=== PATIENT | male | born 1995 | race African-American/Black ===

== ENCOUNTER 2021-04-19 09:47 | Day surgery (SDC) | payer OTHER ==
[2021-04-15 16:08] LABS: BASOPHILS % (AUTO) 0.5 % (0-1); EOSINOPHILS # (AUTO) 0.1 X10'3 (0-0.9); EOSINOPHILS % (AUTO) 0.8 % (0-6); LYMPHOCYTES # (AUTO) 1.9 X10'3 (1.1-4.8); LYMPHOCYTES % (AUTO) 24.7 % (21-51); MEAN CORPUSCULAR HEMOGLOBIN 26.6 PG (27.0-31.0); MEAN CORPUSCULAR HGB CONC 33.4 g/dL (33.0-36.5); MEAN CORPUSCULAR VOLUME 79.6 FL (78-98); MEAN PLATELET VOLUME 8.3 FL (7.4-10.4); MONOCYTES # (AUTO) 0.7 X10'3 (0-0.9); MONOCYTES % (AUTO) 8.6 % (2-12); NEUTROPHILS # (AUTO) 5.1 X10'3 (1.8-7.7); NEUTROPHILS % (AUTO) 65.4 % (42-75); PRE OP HEMATOCRIT 44.4 % (42.0-52.0); PRE OP HEMOGLOBIN 14.8 g/dL (14.0-17.9); PRE OP PLATELET COUNT 289 X10'3 (140-440); RED BLOOD COUNT 5.58 X10'6 (4.70-6.10)
[2021-04-15 16:09] LABS: ALBUMIN 4.3 G/DL (3.4-5.0); ALBUMIN/GLOBULIN RATIO 1.2 (1.1-1.5); ALKALINE PHOSPHATASE 87 IU/L (46-116); BLOOD UREA NITROGEN 12 MG/DL (7-18); BUN/CREATININE RATIO 10.4 (5.4-32.0); CALCIUM 9.4 MG/DL (8.5-10.1); CHLORIDE 106 MMOL/L (99-107); CREATININE 1.15 MG/DL (0.60-1.10); PRE OP ALT 41 U/L (30-65); PRE OP ANION GAP 9 (8-16); PRE OP AST 15 U/L (10-37); PRE OP BILIRUB, TOTAL 0.9 MG/DL (0.0-1.0); PRE OP GLUCOSE 80 MG/DL (70-104); PRE OP POTASSIUM 4.5 MMOL/L (3.4-5.1); PRE OP SODIUM 145 MMOL/L (135-145); TOTAL CARBON DIOXIDE 29.9 MMOL/L (24-32); eGFR > 90 ML/MIN
[~2021-04-19] VITALS: Ht 177.8 cm; Wt 129.9 kg
[~2021-04-19 09:47] MED LIST: BUPR200T2 PO; METH20TA PO; ceFAZolin inj. 3,000 MG in normal saline 100ml IV soln 100 ML IV ONE; ceFAZolin/D5W- 1GM premix 50 ML IV ONE; cefazolin/dext.iso 2gm/50ml 50 ML IV ONE; famotidine 20mg tablet PO ONE; ringers solution, lacted 1,000 ML IV SCH
[2021-04-19 10:00] VITALS: BP 133/82
[2021-04-19] MEDS ORDERED: LIDOcaine 1% 30ml preserv. free vial ONE (11:46)
[2021-04-19] MEDS ORDERED: BUPIVAcaine/PF 2.5mg/ml (0.25%) 10ml vial ONE (11:46)
[2021-04-19] MEDS ORDERED: BUPIVAcaine 0.5% inj/PF 30 ML ONE (11:52)
[2021-04-19] MEDS ORDERED: midazolam 1 mg/ML 2ml injection ONE ×2 (11:56→11:57)
[2021-04-19] MEDS ORDERED: fentaNYL/PF 50MCG/1 ML 2ML syringe ONE (11:56)
[2021-04-19] MEDS ORDERED: ketamine 50mg/5ml syringe ONE (11:59)
[2021-04-19] MEDS ORDERED: proCHLORperazine 10 MG/2 ml inj IV PRN (12:00)
[2021-04-19] MEDS ORDERED: morphine 2 MG/ML inj. syringe IV PRN (12:00)
[2021-04-19] MEDS ORDERED: ringers solution, lacted 1,000 ML IV SCH (12:00)
[2021-04-19] MEDS ORDERED: ondansetron/PF 4mg/2ml inj IV PRN (12:00)
[2021-04-19] MEDS ORDERED: morphine 4 MG/ML inj SYRINge IV PRN (12:00)
[2021-04-19] MEDS ORDERED: meperidine/PF 25mg/ml syringe IV PRN ×3 (12:00)
[2021-04-19] MEDS ORDERED: propofol inj 20 ML IV ONE (12:15)
[2021-04-19] MEDS ORDERED: LIDOcaine 1%/PF 5ML 10 MG/ML VIAL ONE (12:15)
[2021-04-19] MEDS ORDERED: bacitracin 15gm ointment TP ONE (12:38)
[2021-04-19 12:39] VITALS: BP 155/94
--- NOTE | 2021-04-19 12:39 | NUR ---
Received from OR via , accompanied by Anesthesiologist DR FINE and report given by Anesthesiolgist. AWAKENS TO VOICE. VITALS STABLE. DRESSING DI. SUSAN PAIN.
[2021-04-19 12:49] VITALS: BP 136/90
[2021-04-19 12:59] VITALS: BP 127/89
[2021-04-19] MEDS ORDERED: HYDROcodone/acetaminophen 5mg/325mg tablet PO PRN (13:00)
[2021-04-19 13:09] VITALS: BP 128/67
--- NOTE | 2021-04-19 13:29 | NUR ---
AWAKE AND ORIENTED. VITALS STABLE. DRESSING DI. SUSAN PAIN. HOME WITH A FRIEND AT THIS TIME.
== END 2021-04-19 13:29 | disposition home or self-care (01) ==
LOC: PAS 09:47
PROVIDERS: ATTEND Surgery
DX: L72.0 Epidermal cyst (principal); G47.33 Obstructive sleep apnea (adult) (pediatric); F17.290 Nicotine dependence, other tobacco product, uncomplicated; F43.10 Post-traumatic stress disorder, unspecified; Z20.822 Contact with and (suspected) exposure to COVID-19; Z79.899 Other long term (current) drug therapy; Z98.890 Other specified postprocedural states; R20.8 Other disturbances of skin sensation
CPT/HCPCS: 11420; 36415; 80053; 82948; 85025; J0690; J2001; J2250; J2704; J3010; J3490; U0003; U0005; Z7506; Z7512; A7000; J7120

== ENCOUNTER 2023-08-26 14:10 | Emergency (ER) | payer OTHER ==
[~2023-08-26] VITALS: Ht 177.8 cm; Wt 146.0 kg
[~2023-08-26 14:10] MED LIST changes: -ceFAZolin inj. 3,000 MG in normal saline 100ml IV soln 100 ML IV ONE; -ceFAZolin/D5W- 1GM premix 50 ML IV ONE; -cefazolin/dext.iso 2gm/50ml 50 ML IV ONE; -famotidine 20mg tablet PO ONE; -ringers solution, lacted 1,000 ML IV SCH
[2023-08-26 14:47] VITALS: TEMP 97
[2023-08-26 15:50] LABS: LIPASE 20 U/L (16-77)
[2023-08-26 15:53] LABS: BASOPHILS # (AUTO) 0.1 X10'3 (0-0.2); BASOPHILS % (AUTO) 0.5 % (0-1); EOSINOPHILS # (AUTO) 0.1 X10'3 (0-0.9); EOSINOPHILS % (AUTO) 1.2 % (0-6); HEMATOCRIT 43.1 % (42.0-52.0); LYMPHOCYTES # (AUTO) 1.6 X10'3 (1.1-4.8); LYMPHOCYTES % (AUTO) 13.9 % (21-51); MEAN CORPUSCULAR HEMOGLOBIN 25.8 PG (27.0-31.0); MEAN CORPUSCULAR HGB CONC 32.6 g/dL (33.0-36.5); MEAN PLATELET VOLUME 8.5 FL (7.4-10.4); MONOCYTES # (AUTO) 1.2 X10'3 (0-0.9); MONOCYTES % (AUTO) 10.4 % (2-12); NEUTROPHILS # (AUTO) 8.7 X10'3 (1.8-7.7); PLATELET COUNT 322 X10'3 (140-440); RED BLOOD COUNT 5.45 X10'6 (4.70-6.10); RED CELL DISTRIBUTION WIDTH 13.7 % (11.5-14.5); WHITE BLOOD COUNT 11.7 X10'3 (4.5-11.0)
[2023-08-26] MEDS: normal saline 1000ml 1,000 ML IV ONE (15:59)
[2023-08-26 16:09] VITALS: BP 176/98; PULSE 83; O2SAT 99
[2023-08-26 16:39] LABS: ALANINE AMINOTRANSFERASE 64 U/L (12-78); ALKALINE PHOSPHATASE 104 IU/L (46-116); ASPARTATE AMINO TRANSFERASE 25 U/L (10-37)
[2023-08-26 16:50] LABS: BILIRUBIN,URINE NEGATIVE (Neg); CLARITY,URINE SLIGHTLY CLOUDY (Clear); COLOR,URINE YELLOW (Yellow); GLUCOSE, URINE NEGATIVE (Neg); KETONES,URINE TRACE mg/dl (Neg); LEUKOCYTE ESTERASE ,URINE NEGATIVE (Neg); NITRITES, URINE NEGATIVE (Neg); OCCULT BLOOD,URINE LARGE (Neg); PH,URINE 5.5 (4.8-8.0); PROTEIN,URINE NEGATIVE (Neg); UROBILINOGEN,URINE 0.2 E.U/dL (0.2-1.0)
[2023-08-26 16:52] LABS: UA COLLECTION TYPE CLN CATCH MIDSTREAM
[2023-08-26 17:03] LABS: HYALINE CASTS 0-3 /LPF (NEGATIVE); MUCUS STRANDS MANY /LPF (Neg); SQUAMOUS EPITHELIAL CELL,UR FEW /LPF (FEW)
[2023-08-26 17:05] LABS: BACTERIA,URINE 1+ /HPF (Neg); WBC,URINE 0-4 /HPF (0-4)
[2023-08-26] MEDS: ketorolac trometh. 30mg/ml inj. IV ONE (17:43)
[2023-08-26 17:44] VITALS: RESP 16
[2023-08-26] MEDS: meperidine/PF 50mg/ml syringe IV ONE (17:44)
[2023-08-26] MEDS: sildenafil citrate 20mg tablet PO SCH (17:44)
[2023-08-26] MEDS: normal saline 1000ML IV soln IVB ONE (17:44)
[2023-08-26 17:47] LABS: ALBUMIN 4.2 G/DL (3.4-5.0); ANION GAP 15 (8-16); BLOOD UREA NITROGEN 14 MG/DL (7-18); BUN/CREATININE RATIO 8.9 (10.0-20.0); CALCIUM 8.7 MG/DL (8.5-10.1); CHLORIDE 103 MMOL/L (99-107); CREATININE 1.58 MG/DL (0.60-1.10); GLUCOSE 95 MG/DL (70-104); POTASSIUM 3.9 MMOL/L (3.5-5.1); SODIUM 143 MMOL/L (135-145); eCRCL 73 ML/MIN; eGFR 64 ML/MIN
[2023-08-26] MEDS: ondansetron/PF 4mg/2ml inj IV ONE (17:55)
[2023-08-26] MEDS ORDERED: IBUP-1984 PO (18:44)
[2023-08-26] MEDS ORDERED: FLO0.4C PO (20:25)
== END 2023-08-26 20:40 | disposition home or self-care (01) ==
LOC: ER 14:10
DX: N20.9 Urinary calculus, unspecified (principal); N13.1 Hydronephrosis with ureteral stricture, not elsewhere classified; Z79.899 Other long term (current) drug therapy
CPT/HCPCS: 36415; 74018; 74176; 80048; 81001; 83690; 84075; 84450; 84460; 85025; 96361; 96374; 96375; 99285; J1885; J2175; J2405; J7030